=== PATIENT | female | born 1975 | race Caucasian/White ===

== ENCOUNTER → 2016-09-28 | Outpatient (CLI) | payer OTHER ==
--- NOTE | 2016-09-28 15:26 | REPMRS ---
Patient History The patient states she had a clinical breast exam in 12/2015. Patient is nulliparous. Family history of breast cancer in paternal grandmother, ovarian cancer in maternal grandmother, and pancreatic cancer in maternal grandmother. Took hormonal contraceptives for 18 years. Digital Woman Screen Mammo: September 28, 2016 - Exam #: [id number] Bilateral CC and MLO view(s) were taken. Technologist: Tiffany Solo, Technologist FINDINGS: The breast tissue is extremely dense which could obscure a lesion on mammography. There is no evidence of cancer on this mammogram. ASSESSMENT: BI-RADS/ACR category 2 mammogram. Benign finding(s). Recommendation Routine screening mammogram of both breasts in 1 year (for women over age 40). This mammogram was interpreted with the aid of an FDA-approved computer-aided dectection system. Electronically Signed By: Marlon Pena MD 09/28/16 [id number]
== END ==
LOC: M WHC 14:33
PROVIDERS: ATTEND Obstetrics & Gynecology
DX: Z12.39 Encounter for other screening for malignant neoplasm of breast (principal)

== ENCOUNTER → 2018-02-13 | Outpatient (CLI) | payer OTHER ==
[2018-02-13 13:17] LABS: CHOLESTEROL LEVEL 218 MG/DL (<200); CHOLESTEROL RISK RATIO 3.159 (<5); GLUCOSE, FASTING 76 MG/DL (70-100); HDL CHOLESTEROL 69 MG/DL (>40); LDL CHOLESTEROL 119 MG/DL (<100); NON-HDL-C 149 MG/DL; TOTAL 25(OH) VITAMIN D 32.9 NG/ML (30.0-100.0); TRIGLYCERIDES LEVEL 152 MG/DL (<150)
== END ==
LOC: M WUC 08:29
DX: Z00.00 Encounter for general adult medical examination without abnormal findings (principal); E55.9 Vitamin D deficiency, unspecified
CPT/HCPCS: 82947

== ENCOUNTER → 2018-11-08 | Outpatient (REF) | payer BC | LOC: M LAB REF 16:52 | PROVIDERS: ATTEND Physician Assistant | DX: R30.0 Dysuria (principal) ==

== ENCOUNTER → 2019-01-11 | Outpatient (CLI) | payer BC ==
[2019-01-11 11:06] LABS: BASO # 0.1 10^3/uL (0.0-0.2); EOS # 0.3 10^3/uL (0.0-0.50); EOS % 2.9 % (0.0-3.0); HEMATOCRIT 39.3 % (36.0-47.0); LYMPH # 3.2 10^3/uL (1.5-4.5); LYMPH % 36.2 % (24.0-44.0); MEAN CORPUSCULAR HEMOGLOBIN 29.3 pg (27.0-33.0); MEAN CORPUSCULAR HGB CONC 33.1 g/dl (32.0-36.5); MEAN CORPUSCULAR VOLUME 88.7 fl (80.0-96.0); MONO # 0.9 10^3/uL (0.0-0.8); MONO % 9.8 % (0.0-5.0); NEUTROPHILS # 4.3 10^3/uL (1.8-7.7); PLATELET COUNT, AUTOMATED 378 10^3/uL (150-450); RED BLOOD COUNT 4.43 10^6/uL (4.00-5.40); WHITE BLOOD COUNT 8.7 10^3/uL (4.0-10.0)
[2019-01-11 11:22] LABS: ALBUMIN 3.8 GM/DL (3.2-5.2); ALT/SGPT 20 U/L (12-78); BILIRUBIN,TOTAL 0.2 MG/DL (0.2-1.0); BLOOD UREA NITROGEN 18 MG/DL (7-18); CALCIUM LEVEL 9.6 MG/DL (8.5-10.1); CARBON DIOXIDE LEVEL 28 MEQ/L (21-32); CHLORIDE LEVEL 104 MEQ/L (98-107); CHOLESTEROL LEVEL 221 MG/DL (<200); CHOLESTEROL RISK RATIO 3.564 (<5); CREATININE FOR GFR 0.82 MG/DL (0.55-1.30); GLOMERULAR FILTRATION RATE > 60.0 (>58); GLUCOSE, FASTING 86 MG/DL (70-100); HDL CHOLESTEROL 62 MG/DL (>40); LDL CHOLESTEROL 124 MG/DL (<100); NON-HDL-C 159 MG/DL; POTASSIUM SERUM 4.6 MEQ/L (3.5-5.1); SODIUM LEVEL 140 MEQ/L (136-145); TOTAL PROTEIN 7.3 GM/DL (6.4-8.2); TRIGLYCERIDES LEVEL 173 MG/DL (<150)
== END ==
LOC: M WUC 08:00
PROVIDERS: ATTEND Physician Assistant
DX: E78.2 Mixed hyperlipidemia (principal); M79.7 Fibromyalgia; F17.210 Nicotine dependence, cigarettes, uncomplicated

== ENCOUNTER → 2019-11-10 | Outpatient (CLI) | payer BC ==
[2019-11-10 18:04] LABS: FREE T4 0.87 NG/DL (0.76-1.46); THYROGLOBULIN ANTIBODY < 15.0 U/ML (<60.0)
== END ==
LOC: M WUC 15:12
PROVIDERS: ATTEND Physician Assistant Medical
DX: R53.83 Other fatigue (principal)

== ENCOUNTER → 2020-01-19 | Outpatient (CLI) | payer BC ==
--- NOTE | 2020-02-06 14:39 | SLEEPCENT ---
DATE: 01/19/2020 ORDERED BY: Ghislaine Melgar Nocturnal polysomnography was performed for evaluation of sleep physiology in this patient with a history of excessive somnolence, snoring, and nonrestorative sleep. There was 8 hours and 3 minutes of data reviewed. There was 353 minutes of sleep identified. Sleep latency was prolonged at 56.5 minutes. REM latency was mildly prolonged at 127 minutes. Sleep architecture showed fragmentation. There were two REM cycles noted. Overall sleep efficiency was 73.8%. The patient's electrocardiogram showed a sinus rhythm with an average heart rate of 70 beats per minute. Rate ranged 60-82. EEG showed reasonably normal waveforms for wake and sleep. There were 32 respiratory events identified of 10 seconds in duration or greater, for an apnea-hypopnea index of 5.2. The events were not exclusive to sleep stage. They were more frequent in the supine posture. Snoring was also noted, and arousals from respiratory events when snoring arousals were included occurred 3.7 times per hour. There was significant limb activity appreciated throughout the study, at least three trains of 30 events. Limb movement arousal index was 14.6. Oxygen saturations remained 90% plus throughout the study. IMPRESSION: 1. Mild positional obstructive sleep apnea syndrome (G47.33). Apnea-hypopnea index 5.2. 2. Possible periodic limb movement disorder (G47.61). Limb movement arousal index 14.6. RECOMMENDATION: Sleep position retraining for avoidance of the supine posture may be sufficient to address the patient's obstructive respiratory events. Pending response, the patient may require further intervention with pressure therapy and referral for formal in-laboratory titration may be needed. Once obstructive respiratory events are addressed, should the patient's symptoms persist, interventions to reduce the frequency of arousal from limb activity may also be helpful. [facility]
== END ==
LOC: M SLEEP 20:00
PROVIDERS: ATTEND Nurse Practitioner Adult Health
DX: G47.30 Sleep apnea, unspecified (principal); G47.61 Periodic limb movement disorder

== ENCOUNTER → 2020-02-09 | Outpatient (CLI) | payer BC ==
--- NOTE | 2020-02-09 15:21 | REPMRS ---
Patient History The patient states she had a clinical breast exam in September 2019. Patient has a history of skin cancer at age 42. Family history of breast cancer in paternal grandmother, ovarian cancer and pancreatic cancer in maternal grandmother. Took hormonal contraceptives for 18 years. Digital Woman Screen Mammo: February 09, 2020 - Exam #: [id number] Bilateral CC and MLO view(s) were taken. Technologist: Anastasiia Ahumada, Technologist Prior study comparison: September 28, 2016, digital woman screen mammo performed [facility]. FINDINGS: The breast tissue is heterogeneously dense. This may lower the sensitivity of mammography. The Volpara volumetric breast density category is: C. There is a 24 x 17 mm new well circumscibed density in the left breast centrally. This merits further evaluation. There is a moderate amount of heterogeneously dense fibroglandular tissue which is fairly symmetric. There is no other interval development of dominant mass, architectural distortion, or grouped microcalcification typical of malignancy. There has been no other change in the appearance of the mammogram from the prior studies. 3-D tomosynthesis shows no additional findings. Assessment: BI-RADS/ACR category 0 mammogram, Incomplete: Need additional imaging evaluation and/or prior mammograms for comparison. Recommendation Ultrasound and special view mammogram of the left breast. This patient's Lifetime Breast Cancer RIsk is estimated at 18.7 %. This mammogram was interpreted with the aid of an FDA-approved computer-aided dectection system. Electronically Signed By: Carl Farah MD 02/09/20 [id number]
== END ==
LOC: M WHC 10:52
PROVIDERS: ATTEND Physician Assistant Medical
DX: Z12.31 Encounter for screening mammogram for malignant neoplasm of breast (principal); Z85.828 Personal history of other malignant neoplasm of skin; Z80.41 Family history of malignant neoplasm of ovary; N63.25 Unspecified lump in the left breast, overlapping quadrants

== ENCOUNTER → 2020-02-13 | Outpatient (CLI) | payer BC ==
--- NOTE | 2020-02-24 16:14 | REP ---
DIGITAL DIAGNOSTIC UNILATERAL LEFT BREAST MAMMOGRAPHY WITH CAD AND TARGETED LEFT BREAST SONOGRAPHY HISTORY: Screening mammography from 02/09/2020 was BI-RADS Category 0 incomplete due to a 2.4 cm well-circumscribed central left breast density. Diagnostic imaging was recommended. Comparison mammography is also reviewed from 09/28/2016. MAMMOGRAPHIC FINDINGS: Magnified focal spot compression craniocaudad, mediolateral oblique, and mediolateral views confirm the presence of an oval-shaped density in the central left breast largely well-circumscribed as seen on the screening study. Heterogeneously dense breast parenchyma is again seen. There is a normal appearing axillary lymph node visible. SONOGRAPHIC FINDINGS: Targeted left breast sonography reveals a hypoechoic avascular structure in the left central breast measuring 2.8 x 2.5 x 1.4 cm. This is felt to account for the mammographic opacity. There are internal echoes consistent with a solid lesion. Its long axis is parallel to the skin. There is some enhance through transmission. IMPRESSION: BI-RADS Category 4 suspicious left breast imaging. A 2.8 cm solid mass in the left central breast. Ultrasound-guided needle biopsy recommended with marker clip placement and post clip placement mammography. This report was read with the assistance of an FDA approved computer-aided detection device. Patient letter: M4 dense. LUANA
== END ==
LOC: M WHC 07:55
PROVIDERS: ATTEND Physician Assistant Medical
DX: R92.2 Inconclusive mammogram (principal); N63.20 Unspecified lump in the left breast, unspecified quadrant

== ENCOUNTER → 2020-06-18 | Outpatient (CLI) | payer BC ==
[~2020-06-18] MED LIST: CYCL5TAB PO; CYMB60CA3 PO; HYDR-643 PO; MULT-40 PO; OMEG10002 PO; OMEP-221 PO; PLAQ200T4 PO; ROXI1TAB2 PO
== END ==
LOC: M PLALAB 12:01
PROVIDERS: ATTEND Surgery
DX: Z13.79 Encounter for other screening for genetic and chromosomal anomalies (principal)

== ENCOUNTER → 2020-06-21 | Outpatient (CLI) | payer BC ==
[2020-06-21 19:54] LABS: BASO # 0.1 10^3/uL (0.0-0.2); BASO % 1.4 % (0.0-1.0); EOS # 0.4 10^3/uL (0.0-0.5); EOS % 4.5 % (0.0-3.0); HEMATOCRIT 38.4 % (36.0-47.0); HEMOGLOBIN 12.8 g/dl (12.0-15.5); LYMPH % 38.3 % (24.0-44.0); MEAN CORPUSCULAR HEMOGLOBIN 30.5 pg (27.0-33.0); MEAN CORPUSCULAR HGB CONC 33.3 g/dl (32.0-36.5); MEAN CORPUSCULAR VOLUME 91.6 fl (80.0-96.0); MONO # 0.9 10^3/uL (0.0-0.8); MONO % 10.7 % (0.0-5.0); NEUTROPHILS # 3.6 10^3/uL (1.5-8.5); PLATELET COUNT, AUTOMATED 362 10^3/uL (150-450); RED BLOOD COUNT 4.19 10^6/uL (4.00-5.40); WHITE BLOOD COUNT 7.9 10^3/uL (4.0-10.0)
[2020-06-21 20:13] LABS: BLOOD UREA NITROGEN 15 MG/DL (7-18); CALCIUM LEVEL 9.5 MG/DL (8.5-10.1); CARBON DIOXIDE LEVEL 32 MEQ/L (21-32); CHLORIDE LEVEL 103 MEQ/L (98-107); CREATININE FOR GFR 0.92 MG/DL (0.55-1.30); GLOMERULAR FILTRATION RATE > 60.0 (>58); GLUCOSE, FASTING 89 MG/DL (70-100); POTASSIUM SERUM 3.9 MEQ/L (3.5-5.1); SODIUM LEVEL 140 MEQ/L (136-145)
--- NOTE | 2020-06-22 05:36 | REP ---
INDICATION: BENIGN NEOPLASM OF LEFT BREAST COMPARISON: None. TECHNIQUE: PA and lateral. FINDINGS: The mediastinum and cardiac silhouette are normal. The lung hernandes are clear and without acute consolidation, effusion, or pneumothorax. The skeletal structures are intact and normal. IMPRESSION: No acute cardiopulmonary process. <Electronically signed by Ciro Merritt > 06/22/20 [id number]
== END ==
LOC: M WUC 15:45
PROVIDERS: ATTEND Physician Assistant Medical
DX: D24.2 Benign neoplasm of left breast (principal)

== ENCOUNTER → 2020-07-01 | Outpatient (CLI) | payer BC | LOC: M LABSMTC 11:16 | PROVIDERS: ATTEND Anesthesiology | DX: Z01.812 Encounter for preprocedural laboratory examination (principal); Z20.822 Contact with and (suspected) exposure to COVID-19 ==

== ENCOUNTER 2020-07-06 06:22 | Day surgery (SDC) | payer BC ==
[~2020-07-06] VITALS: Ht 165.1 cm; Wt 74.4 kg
[~2020-07-06 06:22] MED LIST changes: +LIDOCAINE 1% MDV 20ML VIAL SQ PRN; -ROXI1TAB2 PO
[2020-07-06] MEDS ORDERED: HEPARIN SOD (PORCINE) 5000UNITS/ML 1ML VIAL/SYRINGE SQ ONE (07:00)
[2020-07-06] MEDS ORDERED: LR 1,000 ML IV ONE (07:00)
[2020-07-06] MEDS ORDERED: ceFAZolin SOD 2 GM in IV 1 EA IV ONE (07:00)
[2020-07-06] MEDS ORDERED: LIDOCAINE 1% SDV 30ML VIAL As Ordered ONE (07:14)
[2020-07-06] MEDS ORDERED: BUPIVACAINE HCL 0.25% 30ML VIAL As Ordered ONE (07:14)
[2020-07-06] MEDS ORDERED: ONDANSETRON 4MG/2ML VIAL As Ordered ONE (07:25)
[2020-07-06] MEDS ORDERED: propofoL 200 MG/20 ML VIAL As Ordered ONE (07:25)
[2020-07-06] MEDS ORDERED: dexameTHASONE 4 MG/ML 1ML VIAL (J1100 PER 1MG) As Ordered ONE (07:25)
[2020-07-06] MEDS ORDERED: LIDOCAINE 2% 100MG/5ML SDV (FOR ANES.) As Ordered ONE (07:25)
[2020-07-06] MEDS ORDERED: fentaNYL 100 MCG/2 ML INJECTION (J3010) As Ordered ONE (07:26)
[2020-07-06] MEDS ORDERED: MIDAZOLAM INJ 2MG/2ML VIAL (J2250 PER 1MG) As Ordered ONE (07:26)
[2020-07-06] MEDS ORDERED: ACETAMINOPHEN 1000MG 100ML IV BTL (OFIRMEV) (J0131 PER 10MG) As Ordered ONE (08:21)
[2020-07-06] MEDS ORDERED: ePHEDrine SULFATE 25 MG/5 ML(5MG/ML) SYRINGE As Ordered ONE (08:25)
[2020-07-06] MEDS ORDERED: ROXI1TAB2 PO (09:29)
[2020-07-06] MEDS ORDERED: LR 1,000 ML IV SCH (10:00)
[2020-07-06] MEDS ORDERED: METOCLOPRAMIDE INJ 10MG/2ML VIAL (J2765 PER 1) IV PRN (10:00)
[2020-07-06] MEDS ORDERED: PERCOCET 5MG/325MG TAB PO PRN (10:00)
[2020-07-06] MEDS ORDERED: fentaNYL 100 MCG/2 ML INJECTION (J3010) IV PRN (10:00)
[2020-07-06] MEDS ORDERED: ONDANSETRON 4MG/2ML VIAL IV PRN (10:00)
[2020-07-06 10:20] VITALS: BP 125/81
--- NOTE | 2020-07-06 14:18 | REP ---
INDICATION: LEFT BREAST EXCISIONAL BIOPSY. COMPARISON: Comparison left breast mammography 12 March 2020.. TECHNIQUE: Single radiographic view. FINDINGS: Specimen radiography demonstrates a needle biopsy marker clip centrally located in the dense breast tissue comprising the specimen. IMPRESSION: Marker clip is seen within the specimen. <Electronically signed by Carl Farah > 07/06/20 [id number]
--- NOTE | 2020-07-06 19:50 | ROOPDOC ---
[facility] [place] Report of Operation DATE OF PROCEDURE: 07/06/20 PREPROCEDURE DIAGNOSES: left fibroadenoma POSTPROCEDURE DIAGNOSES: left fibroadenoma PROCEDURE: left breast excisional biopsy SURGEON: Dr Benny Saab ANESTHESIA: general ESTIMATED BLOOD LOSS: Approximately 5 mL. COMPLICATIONS: none REMARKS: mass and clip visible on intraop radiography DESCRIPTION OF PROCEDURE: INDICATIONS: Ms. Del Toro is a 45-year-old woman who was found to have a suspicious mass in the left breast found on screening mammogram. This was evaluated with US and sonographic correlate was found. US guided biopsy of the mass was done at [facility] and the pathology came back as a fibroadenoma. Due to the size of over 2 cm, an excisional biopsy was offered to the patient. She was medically cleared for surgery by her primary care doctor. Risks and possible complications of surgical procedure including bleeding, infection and injury to surrounding structures were explained to the patient and she wished to proceed. Consent was signed. My initials were placed on the operative site. Subcutaneous injection of 5000 units of heparin was done in Preop. DETAILS: Patient was taken to the operating room and placed on the operating room table. A sign in was called stating patients name, date of and the procedure to be done. Preoperative antibiotics were infused. Smooth induction of general anesthesia was done. Patients hands were extended on arm rests. Care was taken not to over extend the arms. Pillow was placed under the knees and a foam was placed under the heels. Sequential compression devices were placed and assured to function correctly. Patients left breast and axilla were prepped and draped in the usual fashion. Appropriate time out was done again prior second part of the procedure. Patients name, date of , and the procedure to be done were confirmed. Intraoperative ultrasound and palpation was uses to localize the lesion. Next, local anesthetic using 1% lidocaine and 0.25 % Marcaine 50/50 mix was injected at the site of planned periareolar incision. The incision was made with the scalpel. Dissection was carries toward the palpable mass which was located deep in the subareolar area by the chest wall. Anchoring stitch was placed at the anterior aspect of the mass and left in place upon removal. The mass was dissected from the surrounding tissue. The excisional biopsy specimen was carefully removed from the breast keeping its proper orientation and moved to the back table where margins were marked with the surgical inking kit following the standard colors recommendations. Specimen was then placed on the grid and placed in [employer] Specimen Imaging System. The image revealed the mass with ribbon clip in it. The specimen was labeled with patients name and left excisional biopsy and sent to pathology. Next, the wound was irrigated thoroughly and adequate hemostasis was assured. Additional local anesthetic was injected into surrounding tissues. space was approximated with 2-0 Vicryl. The dermis was closed with 3-0 Vicryl and skin was closed with 4-0 Monocryl. Surgical glue was placed over the incision. Patient emerged from the anesthesia without any problems. Fluffs were placed over the operative site and patients chest was wrapped snuggly in the CONSUELO wrap. Sponge and instrument counts were done and were correct. Patient tolerated procedure well and was taken to recovery unit in stable condition. BENNY SAAB DO Jul 06, 2020 19:50
== END 2020-07-06 10:32 | disposition home or self-care (01) ==
LOC: M SDC 06:22
PROVIDERS: ATTEND Surgery
DX: D24.2 Benign neoplasm of left breast (principal); G47.30 Sleep apnea, unspecified; M79.7 Fibromyalgia; Z79.899 Other long term (current) drug therapy; F41.9 Anxiety disorder, unspecified; F32.9 Major depressive disorder, single episode, unspecified; F17.218 Nicotine dependence, cigarettes, with other nicotine-induced disorders
CPT/HCPCS: 19120; 36415; 81025; 86850; 86900; 86901; 88307; J0131; J0690; J1100; J1644; J2250; J2405; J3010

== ENCOUNTER → 2020-10-13 | Outpatient (CLI) | payer BC ==
[~2020-10-13] MED LIST changes: -LIDOCAINE 1% MDV 20ML VIAL SQ PRN; +ROXI1TAB2 PO
== END ==
LOC: M RAD 13:55
PROVIDERS: ATTEND Surgery
DX: Z53.20 Procedure and treatment not carried out because of patient's decision for unspecified reasons (principal)

== ENCOUNTER → 2020-11-15 | Outpatient (CLI) | payer BC ==
[~2020-11-15] MED LIST changes: +PROHANCE 279.3MG/ML 15ML VIAL As Ordered ONE
--- NOTE | 2020-11-15 15:53 | REP ---
INDICATION: HIGH RISK BREAST CA, DENSE BREASTS. Patient underwent excisional biopsy left breast July 06, 2020 4 benign fibroepithelial proliferation complex fibroadenoma with extensive proliferative epithelial changes. . COMPARISON: Comparison sonography March 12, 2020. Comparison mammography February 09, 2020 and February 13, 2020 TECHNIQUE: Three Cecille MRI imaging was performed with a dedicated breast coil. Axial, coronal, and sagittal T1 and T2 weighted scans were obtained with and without fat saturation in the usual fashion. The study includes dynamically acquired post gadolinium-enhanced imaging with image subtraction. Maximum intensity projection and multi planar reformation imaging is included as well. This study is interpreted with the aid of legalPADD, an FDA approved computer aided detection (CAD) software program, on a dedicated breast MRI workstation. The gadolinium enhancement dose is 14 mL of intravenous ProHance. FINDINGS: There is a moderate amount of fibroglandular tissue bilaterally corresponding with the mammographic pattern. There is mild background parenchymal enhancement. There are a few scattered small simple cysts in each breast. There is no evidence of axillary lymphadenopathy or significant breast cystic change. High-resolution pre and post-contrast T1 and T2 weighted scans show no suspicious morphologic abnormality in either breast. Dynamically acquired sequential postcontrast images show no suspicious area of enhancement and washout kinetics in either breast to suggest malignancy. Subtraction images show no additional abnormality. There is post biopsy change the inferior aspect of the left breast status post excision. Postoperative artifact is seen in the anterior 3rd of the left breast. There is some T2 hyperintensity in the retroareolar ducts on the left. There is no evidence of panchito hematoma. IMPRESSION: BI-RADS category 2 benign bilateral breast MRI findings. <Electronically signed by Carl Farah > 11/15/20 [id number]
== END ==
LOC: M RAD 13:05
PROVIDERS: ATTEND Surgery
DX: Z91.89 Other specified personal risk factors, not elsewhere classified (principal)
CPT/HCPCS: A9576; C8908

== ENCOUNTER 2020-12-15 16:45 | Observation (INO) | payer BC ==
[~2020-12-15] VITALS: Ht 165.1 cm; Wt 73.5 kg
[~2020-12-15 16:45] MED LIST changes: -PROHANCE 279.3MG/ML 15ML VIAL As Ordered ONE
[2020-12-15] MEDS ORDERED: CYCL5TAB (16:54)
[2020-12-15] MEDS ORDERED: FLUTISP (16:54)
--- NOTE | 2020-12-15 18:03 | ECGEPIP ---
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
[2020-12-15 18:38] LABS: BASO # 0.1 10^3/uL (0.0-0.2); BASO % 1.1 % (0.0-1.0); EOS # 0.5 10^3/uL (0.0-0.5); EOS % 5.1 % (0.0-3.0); HEMATOCRIT 41.2 % (36.0-47.0); HEMOGLOBIN 14.2 g/dl (12.0-15.5); LYMPH # 3.8 10^3/uL (1.5-5.0); LYMPH % 35.8 % (24.0-44.0); MEAN CORPUSCULAR HEMOGLOBIN 31.7 pg (27.0-33.0); MEAN CORPUSCULAR HGB CONC 34.5 g/dl (32.0-36.5); MONO # 0.9 10^3/uL (0.0-0.8); MONO % 8.6 % (2.0-8.0); NEUTROPHILS # 5.2 10^3/uL (1.5-8.5); NEUTROPHILS % 49.1 % (36.0-66.0); PLATELET COUNT, AUTOMATED 352 10^3/uL (150-450); RED BLOOD COUNT 4.48 10^6/uL (4.00-5.40); WHITE BLOOD COUNT 10.6 10^3/uL (4.0-10.0)
--- NOTE | 2020-12-15 18:41 | REP ---
INDICATION: CHEST PAIN. COMPARISON: Comparison radiograph June 21, 2020. TECHNIQUE: Portable upright AP chest radiograph. FINDINGS: The lungs are well inflated and free of infiltrate. Pleural angles are sharp. Heart size is normal. Pulmonary vasculature is not increased. EKG monitoring electrodes are present. IMPRESSION: No active disease. <Electronically signed by Carl Farah > 12/15/20 [id number]
[2020-12-15 19:16] LABS: BLOOD UREA NITROGEN 15 MG/DL (7-18); CALCIUM LEVEL 9.1 MG/DL (8.5-10.1); CARBON DIOXIDE LEVEL 30 MEQ/L (21-32); CHLORIDE LEVEL 104 MEQ/L (98-107); CK-MB VALUE MASS < 1.0 NG/ML (<3.6); CPK CREATINE PHOSPHOKINASE 116 U/L (26-192); CREATININE FOR GFR 0.82 MG/DL (0.55-1.30); GLOMERULAR FILTRATION RATE > 60.0 (>58); GLUCOSE, FASTING 88 MG/DL (70-100); MB/CK RELATIVE INDEX 0.86 (< OR =4); POTASSIUM SERUM 4.2 MEQ/L (3.5-5.1); SODIUM LEVEL 139 MEQ/L (136-145); TROPONIN I < 0.02 NG/ML (< 0.10)
--- NOTE | 2020-12-15 22:06 | REPVR ---
PROCEDURE INFORMATION: Exam: CT Head Without Contrast Exam date and time: 12/15/2020 9:42 PM Age: 45 years old Clinical indication: Weakness, extremity; Additional info: Neuro symptoms TECHNIQUE: Imaging protocol: Computed tomography of the head without contrast. Radiation optimization: All CT scans at this facility use at least one of these dose optimization techniques: automated exposure control; mA and/or kV adjustment per patient size (includes targeted exams where dose is matched to clinical indication); or iterative reconstruction. Other technique: STROKE PROTOCOL was implemented. COMPARISON: No relevant prior studies available. FINDINGS: Brain: No acute intracranial hemorrhage is visualized. No intracranial mass effect. There is no midline shift. Artifact limits evaluation of the mariela, the inferior frontal lobes, and anterior temporal lobes. The white-carrero differentiation is otherwise preserved demonstrating no acute territorial type infarct. Small hypodense dilated perivascular spaces below the bilateral basal ganglia. Cerebral ventricles: No ventriculomegaly. Paranasal sinuses: Visualized sinuses are unremarkable. No fluid levels. Mastoid air cells: No mastoid effusion. Bones/joints: The calvarium demonstrates no evidence for a depressed fracture. Soft tissues: Unremarkable. IMPRESSION: 1. No acute intracranial hemorrhage or acute territorial type infarct. 2. If further evaluation is clinically indicated, an MRI of the brain is recommended. ASSESSMENT: Leigh Stroke Program Early CT Score (ASPECTS) = 10 Electronically signed by: Omar Bowden On 12/15/2020 22:06:19 PM
[2020-12-15 22:17] LABS: ERYTHROCYTE SEDIMENTATION RATE 23 mm/hr (0-20)
[2020-12-15 22:19] LABS: ALT/SGPT 56 U/L (12-78)
[2020-12-15 22:20] LABS: ALBUMIN 4.1 GM/DL (3.2-5.2); BILIRUBIN,DIRECT < 0.1 MG/DL (0.0-0.2); BILIRUBIN,TOTAL 0.2 MG/DL (0.2-1.0); C REACTIVE PROTEIN QUANTITATIV 1.03 MG/DL (0.00-0.30); TOTAL PROTEIN 7.8 GM/DL (6.4-8.2)
[2020-12-15 22:39] LABS: INR 0.85; PROTHROMBIN TIME 11.8 SECONDS (12.5-14.3)
[2020-12-15 22:54] LABS: AMPHETAMINES LEVEL URINE NEGATIVE (NEGATIVE); BARBITURATES URINE NEGATIVE (NEGATIVE); BENZODIAZEPINES URINE NEGATIVE (NEGATIVE); CANNABINOIDS URINE NEGATIVE (NEGATIVE); COCAINE METABOLITE URINE NEGATIVE (NEGATIVE); METHADONE URINE NEGATIVE (NEGATIVE); OPIATES URINE NEGATIVE (NEGATIVE); PHENCYCLIDINE URINE NEGATIVE (NEGATIVE)
[2020-12-15 23:00] LABS: RSV AMPLIFICATION NEGATIVE (NEGATIVE)
[2020-12-15] MEDS ORDERED: BACITAB PO (23:52)
[2020-12-15] MEDS ORDERED: CYCL5TAB PO (23:52)
[2020-12-15] MEDS ORDERED: FLON1SPR (23:52)
[2020-12-15] MEDS ORDERED: ZINC1TAB2 PO (23:52)
[2020-12-15] MEDS ORDERED: POLYOPD OU (23:52)
[2020-12-15] MEDS ORDERED: PLAQ200T4 PO (23:52)
[2020-12-16] MEDS ORDERED: NS 1,000 ML IV SCH (02:00)
[2020-12-16] MEDS ORDERED: NICOTINE POLACRILEX 2 MG GUM PO PRN (02:00)
--- NOTE | 2020-12-16 02:05 | HPEPDOC ---
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 Patient denied any fever headache chills vomiting. She made a primary care physician appointment because of these palpitations but has not seen her regular doctor yet. Today after she got back from a meeting around 11:30 AM patient felt like her heart was beating very fast coming out of her chest she went to the nurses office and was found to have sinus rhythm ventricular rate of 92 she was given a bottle of water thinking that she was dehydrated. Palpitations usually last about 5 minutes then recurs every 3-4 hours. When she got home at 4 while she was talking to her boyfriend her boyfriend said that she talked funny and was mixing up her letters she arrived in the emergency room such as saying "TURF" when she meant to say "SURF." Patient denied using any recreational drugs changes in medications [id number] supplements. She admits to only drinking 1 caffeinated beverage usually of coffee daily. She denied any prior history of hyperthyroidism or pheochromocytoma and has not had any episodes of diarrhea diaphoresis but admits to having weight loss of about 8 pounds without changes in appetite. EKG showed sinus rhythm. She was not tachypneic tachycardic or hypoxic. chest x-ray and CT of the head were negative. Patient was given aspirin 325 mg x 1 for possible transient ischemic attack. Hospitalist was asked to admit the patient for work-up of expressive aphasia and palpitations to rule out a tachyarrhythmia. 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 She denies recreational drug use. She has no healthcare proxy. FAMILY HISTORY: Mother alive in her 60s with hypertension father alive in his 60s and known medical problems ALLERGIES: Please see below. REVIEW OF SYSTEMS: 10 point review of systems negative aside from positive findings in HPI HOME MEDICATIONS: Please see below. PHYSICAL EXAMINATION: VITAL SIGNS: See below GENERAL APPEARANCE: No distress pallor icterus jaundice no use of respiratory accessory muscles speaks in full sentences HEENT: Face is symmetric tongue is midline speech is fluent no thyromegaly cervical lymphadenopathy moist mucous membranes extraocular muscles intact pupils equally round reactive to light and accommodation. CARDIOVASCULAR: S1-S2 sinus rhythm no murmurs rubs or gallops LUNGS: Clear to auscultation no wheezing rales or rhonchi air entry is equal no other adventitious breath sounds Left breast scar from prior biopsy ABDOMEN: Positive bowel sounds soft nontender nondistended no rebound guarding no hepatosplenomegaly no abdominal bruit EXTREMITIES: No cyanosis clubbing or pitting edema NEUROLOGICAL: Awake alert oriented x3 answering questions appropriately face is symmetric tongue is midline speech is fluent no dysmetria on [id number] testing no pronator drift bilateral upper and lower extremities motor function are intact 5 out of 5 no sensory disturbance negative Babinski bilaterally LABORATORY DATA: See below. IMAGING: See below MICROBIOLOGY: Please see below. ASSESSMENT: 45-year-old female with acute onset of expressive aphasia and palpitations at work. TIA/expressive aphasia -Continue on aspirin 81 mg daily.check fasting lipid profile. obtain MRI of the brain. neurochecks every 4 hourly -If negative findings on MRI, outpatient follow-up with neurology Palpitations rule out tachyarrhythmia -Patient will need cardiology referral by PCP for Holter monitor -If patient has concerning symptoms for pheochromocytoma with triad of headache diaphoresis and palpitations may consider checking 24-hour urine fractionated metanephrines and catecholamines or plasma fractionated metanephrines after 30 minutes of resting. -Avoid caffeinated beverages - check thyroid function tests -Continue on telemetry to rule out SVT AVRT AVNRT MAT or A. fib /a flutter -Check urine drug screen Active tobacco abuse -Nicotine patch nicotine gum as needed tobacco cessation counseling Hypertension, uncontrolled -Continue routine vitals. If persistently elevated above 130, may benefit from beta-blockers. 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 History of left breast lumpectomy with benign mass Diet 2 g sodium DVT prophylaxis: Compression stockings CODE STATUS: Full code Vital Signs Vital Signs Date Time Temp Pulse Resp B/P (MAP) Pulse Ox O2 Delivery O2 Flow Rate FiO2 12/16/20 01:30 72 138/85 (102) 99 12/15/20 16:45 97.9 16 Room Air Laboratory Data Labs 24H Laboratory Tests 2 12/15/20 18:29: Immature Granulocyte % (Auto) 0.3, Neutrophils (%) (Auto) 49.1, Lymphocytes (%) (Auto) 35.8, Monocytes (%) (Auto) 8.6H, Eosinophils (%) (Auto) 5.1H, Basophils (%) (Auto) 1.1H, Neutrophils # (Auto) 5.2, Lymphocytes # (Auto) 3.8, Monocytes # (Auto) 0.9H, Eosinophils # (Auto) 0.5, Basophils # (Auto) 0.1, Nucleated Red Blood Cells % (auto) 0.0, Erythrocyte Sedimentation Rate 23H, Anion Gap 5L, Glomerular Filtration Rate > 60.0, Calcium Level 9.1, Total Bilirubin 0.2, Direc t Bilirubin < 0.1, Aspartate Amino Transf (AST/SGOT) 31, Alanine Aminotransferase (ALT/SGPT) 56, Alkaline Phosphatase 105, Total Creatine Kinase 116, Creatine Kinase MB < 1.0, Creatine Kinase MB Relative Index 0.86, Troponin I < 0.02, C-Reactive Protein, Quantitative 1.03H, Total Protein 7.8, Albumin 4.1, Albumin/Globulin Ratio 1.1L, Thyroid Stimulating Hormone (TSH) 1.130 7/21/21 22:06: Prothrombin Time 11.8, Prothromb Time International Ratio 0.85, Activated Partial Thromboplast Time 30.0 12/15/20 22:07: Coronavirus (COVID-19)(PCR) NEGATIVE, Influenza Type A (RT-PCR) NEGATIVE, Influenza Type B (RT-PCR) NEGATIVE, Respiratory Syncytial Virus (PCR) NEGATIVE 12/15/20 22:10: Urine Color YELLOW, Urine Appearance CLEAR, Urine pH 5.0, Urine Specific [place] 1.014, Urine Protein NEGATIVE, Urine Glucose (UA) NEGATIVE, Urine Ketones NEGATIVE, Urine Blood NEGATIVE, Urine Nitrite NEGATIVE, Urine Bilirubin NEGATIVE, Urine Urobilinogen 0.2, Urine Leukocyte Esterase NEGATIVE, Urine WBC (Auto) 0, Urine RBC (Auto) 5H, Urine Hyaline Casts (Auto) 0, Urine Bacteria (Auto) NEGATIVE, Urine Squamous Epithelial Cells 1, Urine Sperm (Auto) , Urine Opiates Screen NEGATIVE, Urine Methadone Screen NEGATIVE, Urine Barbiturates Screen NEGATIVE, Urine Phencyclidine Screen NEGATIVE, Urine Amphetamines Screen NEGATIVE, Urine Benzodiazepines Screen NEGATIVE, Urine Cocaine Metabolite Screen NEGATIVE, Urine Cannabinoids Screen NEGATIVE CBC/BMP Laboratory Tests 12/15/20 18:29 Home Medications Scheduled Duloxetine Hcl (Cymbalta) 60 Mg Capsule.dr, 60 MG PO DAILY Hydroxychloroquine Sulfate (Plaquenil) 200 Mg Tablet, 300 MG PO DAILY L.acidoph/L.bulg/B.bif/S.therm (Bacid Caplet) 1 Each Tablet, 1 TAB PO DAILY Multivitamin (Multivitamins) 1 Each Tablet, 1 TAB PO DAILY [place]-3/Dha/Epa/Fish Oil (Fish Oil 1,000 mg Softgel) 1 Each Capsule, 2 CAP PO DAILY Omeprazole (Omeprazole) 40 Mg Capsule.dr, 40 MG PO DAILY Zinc (Zinc) 50 Mg Tablet, 50 MG PO Q2D Scheduled PRN Cyclobenzaprine HCl (Cyclobenzaprine HCl) 5 Mg Tablet, 5 MG PO QHS PRN for MUSCLE SPASMS Fluticasone Propionate (Flonase Allergy Relief) 9.9 Ml [place].susp, 1 SPRAY NA BID PRN for NASAL CONGESTION Polyvinyl Alcohol (Artificial Tears) 15 Ml Drops, 1 DROP OU QID PRN for DRY EYES Allergies Coded Allergies: No Known Allergies (Unverified , 06/24/20) A-FIB/CHADSVASC A-FIB History Current/History of A-Fib/PAF?: No Current PO Anticoag Therapy: No Age/Risk Factor Scoring CHADSVASC: CHADSVASC Response (Comments) Value Age Risk Factor Age < 65 years old 0 Gender Risk Factor Female 1 Hx of CHF No 0 Hx of HTN Yes 1 Hx of Stroke/TIA/or VTE No 0 Hx of Diabetes No 0 Hx of Vascular Disease No 0 Total 2 Treatment Treatment ordered: NONE KAYLA CORONADO MD Dec 16, 2020 02:05
[2020-12-16 08:12] LABS: HEMATOCRIT 38.4 % (36.0-47.0); HEMOGLOBIN 13.3 g/dl (12.0-15.5); MEAN CORPUSCULAR HEMOGLOBIN 31.7 pg (27.0-33.0); MEAN CORPUSCULAR HGB CONC 34.6 g/dl (32.0-36.5); MEAN CORPUSCULAR VOLUME 91.6 fl (80.0-96.0); PLATELET COUNT, AUTOMATED 314 10^3/uL (150-450); RED BLOOD COUNT 4.19 10^6/uL (4.00-5.40); WHITE BLOOD COUNT 8.5 10^3/uL (4.0-10.0)
[2020-12-16 08:25] LABS: HEMOGLOBIN A1c 5.3 %
[2020-12-16 08:49] LABS: BLOOD UREA NITROGEN 13 MG/DL (7-18); CALCIUM LEVEL 9.1 MG/DL (8.5-10.1); CARBON DIOXIDE LEVEL 27 MEQ/L (21-32); CHLORIDE LEVEL 106 MEQ/L (98-107); CHOLESTEROL LEVEL 226 MG/DL (<200); CHOLESTEROL RISK RATIO 4.346 (<5); CREATININE FOR GFR 0.71 MG/DL (0.55-1.30); GLOMERULAR FILTRATION RATE > 60.0 (>58); GLUCOSE, FASTING 86 MG/DL (70-100); HDL CHOLESTEROL 52 MG/DL (>40); LDL CHOLESTEROL 142 MG/DL (<100); NON-HDL-C 174 MG/DL; POTASSIUM SERUM 4.1 MEQ/L (3.5-5.1); SODIUM LEVEL 141 MEQ/L (136-145); TRIGLYCERIDES LEVEL 160 MG/DL (<150)
--- NOTE | 2020-12-16 09:38 | REPVR ---
PROCEDURE INFORMATION: Exam: MR Head Without Contrast Exam date and time: 12/16/2020 9:11 AM Age: 45 years old Clinical indication: Speech disturbance; Aphasia; Additional info: Expressive aphasia TECHNIQUE: Imaging protocol: MR of the head without contrast. COMPARISON: CT Head without contrast 12/15/2020 9:37 PM FINDINGS: Brain: No abnormal areas of signal intensity are seen. Diffusion images are normal. No evidence of acute infarction. No evidence of acute intracranial hemorrhage. No extra-axial fluid collections. Ventricles and cerebrospinal fluid spaces are normal in size and configuration for the patient's age. There is no evidence of mass-effect or midline shift. Flow voids of the [place] of [place] and major cerebral vascular structures appear intact. Craniocervical junction appears unremarkable, with normal position of cerebellar tonsils and no evidence of Chiari I malformation. Cerebral ventricles: Normal. No ventriculomegaly. Bones/joints: Unremarkable as visualized. Paranasal sinuses: There is opacification of small left maxillary sinus with mucosal thickening. There is also mild mucosal thickening in ethmoid, sphenoid, and maxillary sinuses. Mastoid air cells: No significant mastoid effusion. Orbital cavity: Unremarkable. Soft tissues: Unremarkable as visualized. IMPRESSION: 1. No acute infarct or acute hemorrhage. 2. Mucosal sinus disease. Electronically signed by: Rossana Tompkins On 12/16/2020 09:38:10 AM
[2020-12-16] MEDS: ASPIRIN 81 MG CHEW TABLET PO SCH (09:54)
[2020-12-16] MEDS ORDERED: ACETAMINOPHEN TAB 650MG DOSE (2X325MG) PO PRN (10:25)
--- NOTE | 2020-12-16 12:25 | REP ---
INDICATION: TIA COMPARISON: None. TECHNIQUE: Real-time ultrasound evaluation and duplex Doppler interrogation of the extracranial carotid vasculature is performed. FINDINGS: There is mild plaquing and narrowing in both carotid bulbs extending into the internal and external carotid arteries. Luminal narrowing is less than 50%. There is no evidence of hemodynamically significant stenosis of either internal carotid artery. Normal flow velocities are seen. The vertebral arteries demonstrate normal direction of flow. There is a lymph node in the left neck soft tissues measuring 3.1 x 0.8 x 2.4 cm. RIGHT LEFT Peak systolic velocity ICA 84.5 cm/s 113 cm/s End diastolic velocity ICA 37.9 cm/s 44.8 cm/s Peak systolic velocity CCA 106 cm/s 130cm/s Peak systolic velocity ECA 96.9 cm/s 120 cm/s ICA/CCA ratio 0.80 0.87 IMPRESSION: Bilateral luminal narrowing of the internal carotid arteries less than 50%. No evidence of hemodynamically significant stenosis. Nonspecific lymph node left neck soft tissues measuring 3.1 x 0.8 x 2.4 cm. Clinical correlation and follow-up recommended. Further evaluation may be made with CT of the neck with IV contrast. <Electronically signed by Marlon Pena > 12/16/20 [id number]
[2020-12-16 15:23] VITALS: BP 133/86
[2020-12-16] MEDS: NICOTINE 14 MG/24 HR TRANSDERMAL TD SCH (15:36)
[2020-12-16] MEDS ORDERED: FLUTICASONE PROP 0.05% NASAL SPRAY 16 GM (FLONASE) PRN (18:10)
[2020-12-16] MEDS ORDERED: POLYVINYL ALCOHOL OPHTH SOLN 15 ML(LIQUITEARS) OU PRN (18:10)
[2020-12-16] MEDS ORDERED: CYCLOBENZAPRINE 5MG TABLET PO PRN (18:10)
[2020-12-16] MEDS ORDERED: PILL CUTTER 1 EACH XX PRN (18:25)
[2020-12-16] MEDS: LACTOBACILLUS ACIDOPHILUS CAP (BACID) PO SCH (18:32)
[2020-12-16] MEDS: OMEGA-3 1000MG CAPSULE PO SCH (18:32)
[2020-12-16] MEDS: DULoxetine 30 MG CAP (CYMBALTA) PO SCH (18:33)
[2020-12-16] MEDS: HYDROXYCHLOROQUINE 200 MG TAB PO SCH (21:19)
[2020-12-16 22:00] VITALS: BP 111/60
[2020-12-17 06:00] VITALS: BP 107/57
[2020-12-17 06:18] LABS: HEMATOCRIT 39.4 % (36.0-47.0); HEMOGLOBIN 13.5 g/dl (12.0-15.5); MEAN CORPUSCULAR HEMOGLOBIN 31.7 pg (27.0-33.0); MEAN CORPUSCULAR HGB CONC 34.3 g/dl (32.0-36.5); MEAN CORPUSCULAR VOLUME 92.5 fl (80.0-96.0); PLATELET COUNT, AUTOMATED 320 10^3/uL (150-450); RED BLOOD COUNT 4.26 10^6/uL (4.00-5.40)
[2020-12-17 06:43] LABS: BLOOD UREA NITROGEN 13 MG/DL (7-18); CARBON DIOXIDE LEVEL 29 MEQ/L (21-32); CHLORIDE LEVEL 107 MEQ/L (98-107); CREATININE FOR GFR 0.71 MG/DL (0.55-1.30); GLOMERULAR FILTRATION RATE > 60.0 (>58); GLUCOSE, FASTING 83 MG/DL (70-100); POTASSIUM SERUM 4.4 MEQ/L (3.5-5.1); SODIUM LEVEL 140 MEQ/L (136-145)
[2020-12-17] MEDS: OMEGA-3 1000MG CAPSULE PO SCH (08:27)
[2020-12-17] MEDS: DULoxetine 30 MG CAP (CYMBALTA) PO SCH (08:27)
[2020-12-17] MEDS: ASPIRIN 81 MG CHEW TABLET PO SCH (08:27)
[2020-12-17] MEDS: LACTOBACILLUS ACIDOPHILUS CAP (BACID) PO SCH (08:27)
[2020-12-17] MEDS: NICOTINE 14 MG/24 HR TRANSDERMAL TD SCH (08:28)
[2020-12-17] MEDS ORDERED: ISOVUE-370 76% 100ML VIAL As Ordered ONE (08:35)
[2020-12-17] MEDS ORDERED: ASPI81CH8 PO (09:07)
[2020-12-17] MEDS: HYDROXYCHLOROQUINE 200 MG TAB PO SCH (09:27)
--- NOTE | 2020-12-17 10:24 | REPVR ---
PROCEDURE INFORMATION: Exam: CT Neck With Contrast Exam date and time: 12/17/2020 8:48 AM Age: 45 years old Clinical indication: Other: Lymphadenopathy TECHNIQUE: Imaging protocol: Computed tomography images of the neck with contrast. Radiation optimization: All CT scans at this facility use at least one of these dose optimization techniques: automated exposure control; mA and/or kV adjustment per patient size (includes targeted exams where dose is matched to clinical indication); or iterative reconstruction. Contrast material: ISOVUE 370; Contrast volume: 75 ml; Contrast route: INTRAVENOUS (IV); COMPARISON: US Duplex,carotid (complete) 12/16/2020 11:19 AM FINDINGS: Paranasal sinuses: The left maxillary sinus is opacified with mucosal thickening and or fluid and the sinus itself is contracted suggestive of a chronic sinusitis. Nasopharynx: Unremarkable. Oropharynx: Unremarkable. No significant tonsillar enlargement. Hypopharynx: Unremarkable. Larynx: Unremarkable. Normal epiglottis. Retropharyngeal space: Normal. No retropharyngeal abscess. Submandibular/Parotid glands: Multiple small rounded an oval-shaped hypodense nodules are present in both parotid glands which may represent intraparotid lymph nodes. The differential diagnosis includes Warthin's tumor, metastatic disease and parotid non-Hodgkin lymphoma. Thyroid: Multiple slightly enlarged lymph nodes are seen in the anterior and posterior cervical triangles of both sides of the neck, extending from the jugulodigastric level down to the thyroid gland level. Lymph nodes: Unremarkable. No lymphadenopathy. Trachea: Visualized trachea is unremarkable. Lungs: Unremarkable as visualized. Bones/joints: Unremarkable. No acute fracture. Soft tissues: Unremarkable. No significant soft tissue swelling. IMPRESSION: 1. Multiple slightly enlarged lymph nodes are seen in the anterior and posterior cervical triangles of both sides of the neck, extending from the jugulodigastric level down to the thyroid gland level. 2. Multiple small rounded an oval-shaped hypodense nodules are present in both parotid glands which may represent intraparotid lymph nodes. The differential diagnosis includes Warthin's tumor, metastatic disease and parotid non-Hodgkin lymphoma. 3. The left maxillary sinus is opacified with mucosal thickening and or fluid and the sinus itself is contracted suggestive of a chronic sinusitis. Electronically signed by: Kenny Roque On 12/17/2020 10:23:48 AM
--- NOTE | 2020-12-17 12:43 | ECHO ---
ECHOCARDIOGRAM DATE OF PROCEDURE: 12/16/2020 Age: Gender: Height: 165 cm Weight: 73 kg REFERRING PHYSICIAN: Dr. Ely Terrazas INDICATION: Transient cerebral ischemia unspecified. 2D MEASUREMENTS: Left atrium 3.3 cm Left atrial volume index 29 Aortic root 2.9 cm Left ventricle diastole 4.1 cm Ventricular septum 0.96 cm Posterior wall 0.95 cm Inferior vena cava 1.9 cm with normal respiratory variation DOPPLER MEASUREMENTS No aortic stenosis. No aortic regurgitation. Aortic valve velocity 138 cm/s LVOT velocity 72.5 cm/s No mitral regurgitation No mitral stenosis Mitral E velocity 84.4 cm/s Mitral A velocity 59.6 cm/s Mitral deceleration time 174 msec Trace tricuspid regurgitation. No pulmonic regurgitation. Pulmonary acceleration time 153 msec MITRAL ANNULAR TISSUE DOPPLER E prime septal 9.1 cm/s, E prime lateral 14.0 cm/s DESCRIPTION: Rhythm was sinus. Image quality was good. No pericardial effusion. This was a 2D, M mode, color flow Doppler, and pulse wave Doppler examination and included saline bubble study. CONCLUSIONS: 1. Saline bubble study was negative for detection of right to left intracardiac shunting or intrapulmonary shunting. 2. Normal echocardiogram Doppler. 3. Normal left ventricle internal dimensions and wall thickness. 4. Normal regional left ventricular (LV) wall motion and wall thickening. 5. Normal LV systolic function. 6. Left ventricular ejection fraction (LVEF) 65% by visual estimate. Normal LV diastolic function.
--- NOTE | 2020-12-17 16:34 | DSES ---
DISCHARGE SUMMARY DATE OF ADMISSION: 12/15/2020 DATE OF DISCHARGE: 12/17/2020 DISCHARGE DIAGNOSES: 1. Possible transient ischemic attack. 2. Cervical lymphadenopathy, unspecified. PROCEDURES PERFORMED DURING THIS HOSPITALIZATION: None. CONSULTANTS ON THE CASE: None. DISPOSITION: Patient discharged home. CONDITION ON DISCHARGE: Stable. PERTINENT LABORATORIES OBTAINED DURING HOSPITAL STAY: White count 9, hemoglobin 13, hematocrit 39, platelet count 320. ESR was 23. INR 0.85, PT is 11.8, PTT is 30. Sodium 140, potassium 4.4, chloride 107, bicarbonate 29, BUN 13, creatinine 0.7. Hemoglobin A1c is 5.3. Triglycerides 160, total cholesterol 226, LDL 142, total HDL 52. TSH 1.13. Serial troponin markers are negative. Urinalysis was unremarkable. Urine drug screen was negative. COVID and influenza swabs were negative. IMAGING STUDIES: Echocardiogram was done prior to discharge. I do not have the results at the time of discharge. Other imaging studies done were a chest x-ray, which showed no acute pathology. CT of the head showed no acute pathology. MRI of the brain, which showed no acute stroke. Carotid ultrasound, which showed no significant carotid artery disease. The patient was noted to have an enlarged left cervical lymph node. A CT scan of the neck with contrast showed multiple slightly enlarged lymph nodes seen in the anterior and posterior cervical triangle on both sides of the neck, extending from the jugulodigastric level down to the thyroid gland level. Multiple small, rounded and oval-shaped hypodense nodules are present in both the parotid glands, which may represent intraparotid lymph nodes. The differential diagnosis includes Warthin's tumor, metastatic disease, and parotid non-Hodgkin's lymphoma. The left maxillary sinus is opacified with mucosa thick and/or fluid and the sinus itself is contracted, suggestive of a chronic sinusitis. DISCHARGE MEDICATIONS: - aspirin 81 mg by mouth daily - Flexeril 5 mg at bedtime as needed for muscle spasms - duloxetine 60 mg daily - Flonase one spray twice a day as needed for nasal congestion - hydroxychloroquine 300 mg by mouth daily - multivitamin one capsule daily - omega fish oil two capsules daily - omeprazole 40 mg daily - artificial tears one drop both eyes four times a day as needed for dry eyes - zinc 50 mg every 2 days DISCHARGE INSTRUCTIONS: Patient is instructed to followup with her primary care physician (PCP) for a referral to an oncologist for further evaluation of her cervical lymphadenopathy. In addition, patient is advised to followup with her PCP for results of echocardiogram done during this hospitalization. Patient should have a cardiology referral so that she can have a Holter as an outpatient for investigation of palpitations that she was experiencing. No arrhythmias were noted on telemetry during this stay. FOLLOWUP LABORATORIES: None. HOSPITAL COURSE: Reta is a 45-year-old woman who had presented to the hospital with complaints of palpitation and expressive aphasia. Upon arriving to the emergency room (ER), patient's symptoms had nearly abated. Stroke workup was negative. Her EKG showed a normal sinus rhythm. Telemetry failed to show any arrhythmias during her hospital stay. She was hospitalized to an observation status. A carotid ultrasound was obtained, which showed no significant pathology other than an enlarged lymph node. There was recommendation to obtain a CT scan of her neck with contrast which we did, that showed bilateral lymphadenopathy. The patient was advised of this and told that she needs to followup with her PCP for an oncology referral to investigate this. She was placed on baby aspirin. Lipid profile was elevated, so she was started on a statin also. Patient was discharged home in stable condition. At the time of discharge, the patient's temperature is 96.9, pulse 69, respirations 16, blood pressure 107/57, oxygen saturation 96% on room air. General: Patient is alert and oriented times three. Appears in no acute distress. Skin is intact and warm to touch. Head is atraumatic and normocephalic. Pupils symmetric and reactive to light. Oropharynx without exudate or erythema. Neck supple. Lung sounds present. Lung sounds present without rales or rhonchi. Heart is S1, S2 without murmurs, rubs, or gallops. Abdomen is soft, nontender, nondistended. Extremities without any cyanosis, clubbing or edema. Neurologic exam: Cranial nerves II-XII are grossly intact without any focal neurologic deficits. Patient's speech is fluent. She has no visible gait disturbances. A total of 30 minutes spent completing all discharge paperwork.
== END 2020-12-17 11:40 | disposition home or self-care (01) ==
LOC: M ED 16:45 → M ED INP 16:46 → ENRESERV 12-16 13:32 → M MSPAV 12-16 14:40
PROVIDERS: ADMIT General Practice; ATTEND Internal Medicine
DX: R47.01 Aphasia (principal); R00.2 Palpitations; R59.0 Localized enlarged lymph nodes; R03.0 Elevated blood-pressure reading, without diagnosis of hypertension; L94.9 Localized connective tissue disorder, unspecified; M79.7 Fibromyalgia; G25.81 Restless legs syndrome; I73.00 Raynaud's syndrome without gangrene; G47.33 Obstructive sleep apnea (adult) (pediatric); C44.329 Squamous cell carcinoma of skin of other parts of face; F17.210 Nicotine dependence, cigarettes, uncomplicated; Z79.899 Other long term (current) drug therapy; Z79.82 Long term (current) use of aspirin
CPT/HCPCS: 36415; 70450; 70491; 70551; 71045; 80048; 80061; 80076; 80307; 81001; 82550; 82553; 83036; 84443; 84484; 85025; 85027; 85610; 85652; 85730; 86140; 87631; 93005; 93041; 93306; 93880; 94760; 96360; 96361; 99285; Q9967

== ENCOUNTER → 2021-02-03 | Outpatient (CLI) | payer BC ==
[~2021-02-03] MED LIST changes: +ASPI81CH8 PO; +BACITAB PO; +CYCL5TAB; +FLON1SPR; +FLUTISP; +POLYOPD OU; +ZINC1TAB2 PO
--- NOTE | 2021-02-03 10:29 | REP ---
INDICATION: LYMPHADENOPATHY. COMPARISON: Comparison soft tissue neck CT study December 17, 2020. TECHNIQUE: Bilateral soft tissue neck sonography. FINDINGS: Multiple bilateral neck lymph nodes are again seen. Each of these has preserved hyperechoic fatty hilum. Their size and appearance is similar to the CT findings although cross modality comparison is difficult. Among the largest lymph nodes bilaterally is a right submandibular lymph node measuring 1.2 x 0.7 x 1.1 cm and another measuring 1.3 x 0.6 x 1.2 cm. The right neck also contains 2 lymph nodes measuring 1.9 x 0.6 x 1.6 and 1.8 x 0.6 x 1.1 cm. On the left, near the mandibular angle there are lymph nodes measured at 1.5 x 0.5 x 1.3, and 0.7 x 0.4 x 0.8 cm. In the left neck there is a 2.6 x 0.7 x 2.3 cm node. IMPRESSION: Mild cervical lymphadenopathy as above. Findings similar/essentially unchanged to comparison CT study. <Electronically signed by Carl Farah > 02/03/21 [id number]
== END ==
LOC: M RAD 09:19
PROVIDERS: ATTEND Otolaryngology
DX: L04.0 Acute lymphadenitis of face, head and neck (principal)

== ENCOUNTER → 2021-02-23 | Outpatient (CLI) | payer BC ==
[~2021-02-23] MED LIST changes: +LIDOCAINE 1% MDV 20ML VIAL As Ordered ONE
[2021-02-23 09:21] VITALS: BP 123/81
--- NOTE | 2021-02-23 16:45 | REP ---
INDICATION: LT THYROID LYMPH NODE. COMPARISON: None. TECHNIQUE: The procedure was performed under the direct supervision of Dr. Farah. The patient has a history of a 2.6 x 0.7 x 2.3 cm lymph node in the left and neck seen on a previous ultrasound dated 02/03/2021. The risks and benefits of the procedure were explained to the patient and informed consent was obtained. The left neck lymph node was localized using ultrasound guidance. The skin was prepped and draped in a sterile fashion. 4 mL of 1% lidocaine was used as a local anesthetic. Using ultrasound guidance 8 fine needle aspirations were obtained using 25 gauge needles. Estimated blood loss: Less than 1 mL The patient tolerated the procedure well and there were no immediate complications. After the appropriate amount to monitor convalescence the patient was discharged from the department. FINDINGS: None IMPRESSION: Ultrasound-guided left neck lymph node biopsy. <Electronically signed by Eugenio Posey > 02/23/21 [id number] <Electronically signed by Carl Farah > 02/23/21 [id number]
== END ==
LOC: M IRPRO 08:39
PROVIDERS: ATTEND Otolaryngology
DX: L04.0 Acute lymphadenitis of face, head and neck (principal)

== ENCOUNTER → 2021-06-24 | Outpatient (CLI) | payer OTHER ==
[~2021-06-24] MED LIST changes: -CYMB60CA3 PO; +CYMB60CA4 PO; -LIDOCAINE 1% MDV 20ML VIAL As Ordered ONE; -OMEP-221 PO; +OMEP40CA5 PO
== END ==
LOC: M WHC 15:26
PROVIDERS: ATTEND Surgery
DX: Z12.31 Encounter for screening mammogram for malignant neoplasm of breast (principal); Z91.89 Other specified personal risk factors, not elsewhere classified; Z80.3 Family history of malignant neoplasm of breast; Z80.0 Family history of malignant neoplasm of digestive organs; Z80.41 Family history of malignant neoplasm of ovary

== ENCOUNTER → 2021-12-12 | Outpatient (CLI) | payer OTHER | LOC: M PLAIMG 13:25 | PROVIDERS: ATTEND Nurse Practitioner Women's Health | DX: R92.2 Inconclusive mammogram (principal); N60.12 Diffuse cystic mastopathy of left breast; N60.11 Diffuse cystic mastopathy of right breast; Z91.89 Other specified personal risk factors, not elsewhere classified; Z80.3 Family history of malignant neoplasm of breast ==

== ENCOUNTER → 2022-02-10 | Outpatient (CLI) | payer OTHER ==
[2022-02-10 10:14] LABS: BASO # 0.2 10^3/uL (0.0-0.2); BASO % 1.8 % (0.0-1.0); EOS # 0.4 10^3/uL (0.0-0.5); EOS % 4.9 % (0.0-3.0); HEMATOCRIT 42.9 % (36.0-47.0); HEMOGLOBIN 14.5 g/dl (12.0-15.5); LYMPH # 3.1 10^3/uL (1.5-5.0); LYMPH % 38.4 % (24.0-44.0); MEAN CORPUSCULAR HEMOGLOBIN 32.6 pg (27.0-33.0); MEAN CORPUSCULAR HGB CONC 33.8 g/dl (32.0-36.5); MEAN CORPUSCULAR VOLUME 96.4 fl (80.0-96.0); MONO # 0.7 10^3/uL (0.0-0.8); MONO % 8.7 % (2.0-8.0); NEUTROPHILS # 3.8 10^3/uL (1.5-8.5); PLATELET COUNT, AUTOMATED 355 10^3/uL (150-450); RED BLOOD COUNT 4.45 10^6/uL (4.00-5.40); WHITE BLOOD COUNT 8.2 10^3/uL (4.0-10.0)
[2022-02-10 11:06] LABS: ALBUMIN 3.7 GM/DL (3.2-5.2); ALT/SGPT 28 U/L (12-78); BILIRUBIN,TOTAL 0.3 MG/DL (0.2-1.0); BLOOD UREA NITROGEN 14 MG/DL (7-18); CALCIUM LEVEL 9.3 MG/DL (8.5-10.1); CARBON DIOXIDE LEVEL 28 MEQ/L (21-32); CHLORIDE LEVEL 104 MEQ/L (98-107); CHOLESTEROL LEVEL 209 MG/DL (<200); CHOLESTEROL RISK RATIO 3.426 (<5); CREATININE FOR GFR 0.76 MG/DL (0.55-1.30); GLOMERULAR FILTRATION RATE > 60.0 (>58); GLUCOSE, FASTING 76 MG/DL (70-100); HDL CHOLESTEROL 61 MG/DL (>40); LDL CHOLESTEROL 113 MG/DL (<100); NON-HDL-C 148 MG/DL; POTASSIUM SERUM 4.1 MEQ/L (3.5-5.1); SODIUM LEVEL 135 MEQ/L (136-145); TOTAL PROTEIN 7.4 GM/DL (6.4-8.2); TRIGLYCERIDES LEVEL 176 MG/DL (<150)
[2022-02-10 11:48] LABS: TOTAL 25(OH) VITAMIN D 32.7 NG/ML (30.0-100.0)
== END ==
LOC: M WUC 08:28
PROVIDERS: ATTEND Family Medicine
DX: Z00.00 Encounter for general adult medical examination without abnormal findings (principal); E55.9 Vitamin D deficiency, unspecified

== ENCOUNTER → 2022-07-31 | Outpatient (CLI) | payer OTHER | LOC: M WHC 15:08 | PROVIDERS: ATTEND Nurse Practitioner Women's Health | DX: Z12.31 Encounter for screening mammogram for malignant neoplasm of breast (principal); N63.25 Unspecified lump in the left breast, overlapping quadrants; Z91.89 Other specified personal risk factors, not elsewhere classified; Z80.3 Family history of malignant neoplasm of breast ==

== ENCOUNTER → 2022-08-30 | Outpatient (CLI) | payer OTHER ==
[~2022-08-30] MED LIST changes: +ARTIDRO4 OU; +FLUT50SP17; -FLUTISP; -POLYOPD OU
== END ==
LOC: M WHC 13:11
PROVIDERS: ATTEND Nurse Practitioner Women's Health
DX: R92.8 Other abnormal and inconclusive findings on diagnostic imaging of breast (principal); Z91.89 Other specified personal risk factors, not elsewhere classified; Z80.3 Family history of malignant neoplasm of breast
CPT/HCPCS: 76642; 77065; G0279

== ENCOUNTER → 2023-01-25 | Outpatient (CLI) | payer OTHER | LOC: M WHC 10:00 | PROVIDERS: ATTEND Nurse Practitioner Women's Health | DX: R92.8 Other abnormal and inconclusive findings on diagnostic imaging of breast (principal) | CPT/HCPCS: 77065; G0279 ==

== ENCOUNTER → 2023-02-02 | Outpatient (CLI) | payer OTHER ==
[~2023-02-02] MED LIST changes: +PROHANCE 279.3MG/ML 15ML VIAL As Ordered ONE
== END ==
LOC: M RAD 10:44
PROVIDERS: ATTEND Nurse Practitioner Women's Health
DX: Z91.89 Other specified personal risk factors, not elsewhere classified (principal); R92.2 Inconclusive mammogram; Z80.3 Family history of malignant neoplasm of breast
CPT/HCPCS: A9576; C8908

== ENCOUNTER → 2023-09-13 | Outpatient (CLI) | payer OTHER ==
[~2023-09-13] MED LIST changes: -FLUT50SP17; +FLUTISP; -PROHANCE 279.3MG/ML 15ML VIAL As Ordered ONE
== END ==
LOC: M WHC 15:39
PROVIDERS: ATTEND Nurse Practitioner Women's Health
DX: Z12.31 Encounter for screening mammogram for malignant neoplasm of breast (principal)